=== PATIENT | male | born 1955 | race Caucasian/White ===

== ENCOUNTER → 2021-01-06 | Outpatient (CLI) | payer BC ==
[~2021-01-06] MED LIST: MAGNESIUM250 M1 PO; TAMBOCOR 100 M100 M1 PO; TOPROL XL50 MG PO; VITAMIN D310 MC2 PO; XARELTO20 MG PO
== END ==
LOC: LAB 14:10
PROVIDERS: ATTEND Internal Medicine Cardiovascular Disease
DX: Z01.812 Encounter for preprocedural laboratory examination (principal); Z20.822 Contact with and (suspected) exposure to COVID-19

== ENCOUNTER → 2021-01-06 | Outpatient (CLI) | payer BC ==
[2021-01-06 10:51] LABS: ABSOLUTE NEUTROPHILS 4.6 thou/uL (1.4-8.2); BASOPHILS 0.7 % (0.0-2.0); EOSINOPHILS 2.1 % (0.0-3.0); HEMATOCRIT 47.4 % (42.0-52.0); HEMOGLOBIN 15.9 gm/dL (14.0-18.0); LYMPHOCYTES 15.8 % (24.0-44.0); MCH 29.4 pg (26.0-34.0); MCHC 33.6 g/dL (28.0-37.0); MCV 87.5 fL (80.0-100.0); MONOCYTES 9.5 % (1.0-8.0); PLATELET COUNT 182 thou/uL (150-400); POLYS 71.9 % (36.0-66.0); RBC 5.41 mil/uL (4.50-6.00); RDW 13.6 % (10.5-14.5); WBC 6.4 thou/uL (4.0-11.0)
[2021-01-06 11:05] LABS: ALBUMIN 3.8 g/dL (3.4-5.0); CALCIUM 8.7 mg/dL (8.5-10.1); CREATININE 1.1 mg/dL (0.7-1.3); POTASSIUM 4.5 mmol/L (3.5-5.1); TOTAL BILIRUBIN 1.2 mg/dL (0.2-1.0)
== END ==
LOC: CAT 10:09
PROVIDERS: ATTEND Internal Medicine Cardiovascular Disease
DX: I48.91 Unspecified atrial fibrillation (principal)

== ENCOUNTER 2021-01-10 06:29 | Observation (INO) | payer BC ==
[~2021-01-10] VITALS: Ht 182.9 cm; Wt 111.1 kg
--- NOTE | ~2021-01-10 | P ---
[facility] [place] [address] PROCEDURE REPORT Name: PELON NICHOLSON Room #: 218-P [facility] M.R.#: [id number] Admission: 01/10/21 Attend Phys: Filemon Santos MD Discharge: Date of : 55 Report #: [id number] THIS REPORT FOR: cc: Alvin Brice Jeffrey W. DO ~ DATE OF SERVICE: 01/10/2021 ATRIAL FIBRILLATION ABLATION PREOPERATIVE DIAGNOSIS: Atrial fibrillation. POSTOPERATIVE DIAGNOSIS: Atrial fibrillation. The patient is a 65-year-old male with history of AFib, here for ablation. PROCEDURES PERFORMED: 1. Atrial fibrillation ablation. CPT code 61858. 2. 3D mapping, CPT code 45641. 3. Intracardiac echo, CPT code 33492. 4. Focal ablation, CPT code 74533. ANESTHESIA: The patient underwent general anesthesia with no anesthesia related complications. DESCRIPTION OF PROCEDURE: The patient underwent informed consent. We discussed the details of the procedure including the risks, which include but not limited to bleeding, vascular damage, stroke, AK, cardiac perforation, and damage to the stockbridge conduction system. He understood these risks and is willing to proceed. The patient was brought to the EP laboratory in a fasting nonsedated state, prepped and draped in a sterile fashion. I obtained access of the right femoral vein x 3 placing 8, 9 and 7-Setswana short sheath using modified Seldinger technique. Under fluoroscopy, a decapolar catheter was placed into the coronary sinus. An ICE catheter was placed into the right atrium. The patient had a cardiac CT scan prior to the procedure, which showed that he had 3 left pulmonary veins with a middle left vein and 2 right sided pulmonary veins. Using intracardiac ultrasound I created a 3D geometry of the left atrium and merged this with the CT scan. At baseline, the patient was in atrial fibrillation with a controlled ventricular response. The patient was systemically heparinized and transseptal was performed using an SL1 sheath and a [place] needle. This was straightforward and then I exchanged the SL1 sheath for the carotid sheath and placed this into the left atrium. Next, using a [employer] Nolan Pentaray catheter, I created a 3D voltage map of the left atrium and the 3 left pulmonary veins and the right-sided pulmonary veins. Next, the [facility] [address] [place] [address] PROCEDURE REPORT Name: PELON NICHOLSON Room #: 218-P [facility] [place]#: [id number] Admission: 01/10/21 Attend Phys: Filemon Santos MD Discharge: Date of : 55 Report #: [id number] cryoballoon was placed into the left atrium and I started by attempting to isolate the left superior pulmonary vein. The left superior pulmonary vein underwent three 4-minute freezes and we did not have very good temperatures. The coldest I could get was about -35 degrees. I thought that maybe this left middle pulmonary vein was preventing us from isolating. The left superior pulmonary vein had a somewhat unusual horizontal takeoff. I then went to the left inferior pulmonary vein and performed a 4-minute freeze, which resulted in isolation at 160 seconds and there was reconnection. I performed a second freeze of 4 minutes duration and this resulted in isolation at 15 seconds. I then went to the left middle pulmonary vein, which was quite small and I performed two 4-minute freezes in this vessel. There were not many signals in this small vein. I then interrogated the left superior pulmonary vein and this was still connected. I performed 2 additional freezes and the second freeze, I clocked and positioned the balloon more along the roof and this resulted in isolation at 90 seconds. This final freeze was 4 minutes duration. I then turned my attention to the right-sided veins. The right superior pulmonary vein underwent a single 3-minute freeze as this isolated at 30 seconds. The right inferior pulmonary vein underwent a 4-minute freeze and it appeared that it had isolated, but I performed an additional 4-minute freeze that was lower to ensure that this vein remains isolated as the first freeze I did not see acute isolation. All veins were re-interrogated and appeared to be isolated. Posterior wall isolation procedure. Next, given his extensive left atrial enlargement and atrial fibrosis, I decided to go ahead and isolate the posterior wall using the cryoablation balloon. I performed five 3-minute freezes anchored from the left superior pulmonary vein and then I created a repeat voltage map which showed that the roof region was now isolated. I then went back in with the cryoballoon and performed 3 freezes, each of 3 minutes duration, anchored from the left inferior pulmonary vein and then I created a repeat voltage map and this showed that the entire posterior wall was now isolated including the 5 pulmonary veins. At this point, we proceeded with DC cardioversion 200 joules resulted in sinus rhythm. There were no other arrhythmias noted and therefore the procedure was concluded. There was no evidence of pericardial effusion based on intracardiac ultrasound. As such, the patient received systemic protamine and catheters and sheaths were pulled and hemostasis was obtained using a [id number] suture anchored by a 3-way stopcock. There were no procedure related complications. IMPRESSION: 1. Successful afibrillation ablation with isolation of the pulmonary veins. [facility] [address] [place] [address] PROCEDURE REPORT Name: PELON NICHOLSON Room #: 218-P [facility] [place]#: [id number] Admission: 01/10/21 Attend Phys: Filemon Santos MD Discharge: Date of : 55 Report #: [id number] 2. Successful posterior wall isolation. 3. No other inducible arrhythmias. By: [id number] /nt
[2021-01-10 07:20] VITALS: BP 122/86
[2021-01-10 07:31] LABS: BASOPHILS 0.5 % (0.0-2.0); EOSINOPHILS 1.4 % (0.0-3.0); HEMATOCRIT 47.3 % (42.0-52.0); HEMOGLOBIN 15.6 gm/dL (14.0-18.0); LYMPHOCYTES 16.9 % (24.0-44.0); MCH 29.2 pg (26.0-34.0); MCHC 33.1 g/dL (28.0-37.0); MCV 88.3 fL (80.0-100.0); PLATELET COUNT 181 thou/uL (150-400); POLYS 73.2 % (36.0-66.0); RBC 5.35 mil/uL (4.50-6.00); RDW 13.8 % (10.5-14.5); WBC 6.8 thou/uL (4.0-11.0)
[2021-01-10] MEDS ORDERED: XARELTO20 MG PO (07:34)
[2021-01-10] MEDS ORDERED: TOPROL XL50 MG PO (07:34)
[2021-01-10 07:37] LABS: CALCIUM 8.7 mg/dL (8.5-10.1); CREATININE 1.4 mg/dL (0.7-1.3); POTASSIUM 3.9 mmol/L (3.5-5.1)
[2021-01-10] MEDS ORDERED: MAGNESIUM250 M1 PO (07:39)
[2021-01-10] MEDS ORDERED: VITAMIN D310 MC2 PO (07:41)
[2021-01-10 07:42] LABS: ALBUMIN 3.9 g/dL (3.4-5.0)
[2021-01-10 07:44] LABS: INR 1.2
--- NOTE | 2021-01-10 14:48 | NUR ---
1400 pt vomited up small amount of bile. Had vomited in pacu and received zofran 4mg IV. After vomiting in CV holding, pt states he feels much better.
--- NOTE | 2021-01-10 15:27 | NUR ---
PT VOMITS SMALL AMOUNT OF BILE THIS NURSE IS GIVING COMPAZINE 10MG. STATES OTHERWISE HE FEELS FINE. PRESSURE HELD TO RIGHT GROIN PT IS VOMITING.
[2021-01-10] MEDS ORDERED: TAMBOCOR 100 M100 M1 PO (16:22)
[2021-01-10 16:32] VITALS: BP 107/62
[2021-01-10 20:00] VITALS: BP 105/56
[2021-01-10 23:50] VITALS: BP 104/56
[2021-01-11 05:01] VITALS: BP 101/56
--- NOTE | 2021-01-11 06:18 | NUR ---
ASSUMED CARE AT [facility], ALERT AND ORIENTED, SR ON TELE, ASSESSMENTS CHARTED, R GROIN SITE CDI, NO HEMATOMA, DENIES CONCERNS, PLAN IS TO DC TODAY
[2021-01-11 08:00] VITALS: BP 129/71
[2021-01-11 08:25] VITALS: BP 129/71
--- NOTE | 2021-01-11 10:46 | NUR ---
PT DISCHARGED, ALERT AND ORIENTED, GROIN SITE CDI, NO HEMATOMA. DENIES PAIN, DISCHARGE INSTRUCTION READ TO PT AND . PERSCRIPTIONS SENT TO [facility] IN [facility]
== END 2021-01-11 10:47 | disposition home or self-care (01) ==
LOC: CATH 06:29 → 2N 15:56
PROVIDERS: ADMIT Internal Medicine Cardiovascular Disease; ATTEND Internal Medicine Cardiovascular Disease
DX: I48.91 Unspecified atrial fibrillation (principal); E66.9 Obesity, unspecified; Z68.33 Body mass index [BMI] 33.0-33.9, adult; Z79.899 Other long term (current) drug therapy
CPT/HCPCS: 62110; 62900; 65020; 70005